=== PATIENT | male | born 1965 | race Caucasian/White ===

== ENCOUNTER 2021-04-13 22:51 | Emergency (ER) | payer BC, MEDICAID ==
[2021-04-13] MEDS ORDERED: fentaNYL 100 MCG/2 ML SDV IM ONE (23:57)
--- NOTE | 2021-04-13 23:59 | EDM.PDOC ---
ED HPI GENERAL MEDICAL PROBLEM - General Chief Complaint: Headache Stated Complaint: SEVERE HEAD PAIN Time Seen by Provider: 04/13/21 23:49 Source of Information: Reports: Patient, Family, RN Notes Reviewed History Limitations: Reports: No Limitations - History of Present Illness INITIAL COMMENTS - FREE TEXT/NARRATIVE: 55-year-old gentleman presents emergency department today with facial pain, he was recently in the clinic diagnosed with sinusitis started on prednisone and an antibiotic he states he has been using ibuprofen and Tylenol with any significant relief pain is predominantly on the left side it does wax and wane he has had something similar to this about 2 years ago when he had a bad sinus infection. Left Lower Headache Pain Score (Numeric/FACES): 10 - Related Data Allergies Allergy/AdvReac Type Severity Reaction Status Date / Time No Known Allergies Allergy Verified 04/13/21 23:41 Home Meds: Home Meds Tamsulosin [Flomax] 0.4 mg PO DAILY 04/13/21 [History] Past Medical History - Infectious Disease History Other Infectious Disease History: both covid vaccines recieved - Past Surgical History GI Surgical History: Reports: Appendectomy Social & Family History - Tobacco Use Tobacco Use Status *Q: Never Tobacco User - Caffeine Use Caffeine Use: Reports: Coffee - Alcohol Use Days Per Week of Alcohol Use: 7 Number of Drinks Per Day: 1 Total Drinks Per Week: 7 - Recreational Drug Use Recreational Drug Use: Yes Recreational Drug Type: Reports: Marijuana/Hashish Recreational Drug Use Frequency: Weekly ED ROS ENT - Review of Systems Review Of Systems: See Below Constitutional: Denies: Fever, Chills HEENT: Reports: Sinus Problem Respiratory: Reports: No Symptoms Cardiovascular: Reports: No Symptoms GI/Abdominal: Reports: No Symptoms ED EXAM, ENT - Physical Exam Exam: See Below Exam Limited By: No Limitations General Appearance: Alert, Mild Distress Eye Exam: Bilateral Eye: EOMI, Normal Fundi, Normal Inspection, PERRL Ears: Normal External Exam, Normal Canal, Hearing Grossly Normal, Normal TMs, Other (Tender over maxillary sinus on the left) Nose: Normal Inspection, Normal Mucousa, No Blood Mouth/Throat: Normal Inspection, Normal Gums, Normal Lips, Normal Oropharynx, Normal Teeth Respiratory/Chest: No Respiratory Distress, Lungs Clear, Normal Breath Sounds, No Accessory Muscle Use, Chest Non-Tender Cardiovascular: Regular Rate, Rhythm, No Murmur Course - Vital Signs Last Recorded V/S: Last Vital Signs Temp 97.0 F 04/13/21 23:43 Pulse 74 04/13/21 23:43 Resp 16 04/13/21 23:43 BP 141/86 H 04/13/21 23:43 Pulse Ox 97 04/13/21 23:43 - Orders/Labs/Meds Meds: Medications Discontinued Medications Generic Name Dose Route Start Last Admin Trade Name Zach PRN Reason Stop Dose Admin Fentanyl 50 mcg 04/13/21 23:57 04/14/21 00:06 Fentanyl 100 Mcg/2 Ml Sdv IM 04/13/21 23:58 50 mcg ONETIME ONE Administration Departure - Departure Time of Disposition: 00:31 Disposition: Home, Self-Care 01 Condition: Fair Clinical Impression: Sinus headache - Discharge Information Instructions: Sinus Headache Referrals: Elana Maldonado DO [Primary Care Provider] - Forms: ED Department Discharge Additional Instructions: Use ibuprofen for baseline pain control use hydrocodone for breakthrough pain, please followup with your primary care provider in 2-3 days if not better, please call return to the emergency department with worsening of symptoms. Sepsis Event Note (ED) - Evaluation Sepsis Screening Result: No Definite Risk - Focused Exam Vital Signs: Vital Signs Temp Pulse Resp BP Pulse Ox 04/13/21 23:43 97.0 F 74 16 141/86 H 97 - Assessment/Plan Plan: Assessment Acuity = acute Site and laterality = sinus headache Etiology = sinusitis Manifestations = none Location of injury = Home Lab values = none Plan Good improvement with fentanyl provided in emergency department, prescription w ritten for hydrocodone 5/325 1 tab p.o. 3 times daily as needed total #6 follow- up primary care in 2 to 3 days if not better This note was dictated using [employer] voice recognition software please call with any questions on syntax or grammar.
== END 2021-04-14 00:41 | disposition home or self-care (01) ==
LOC: JP.ED 22:51
DX: R51.9 Headache, unspecified (principal); J34.89 Other specified disorders of nose and nasal sinuses
CPT/HCPCS: 96372; 99282; 99283; J3010

== ENCOUNTER 2024-01-31 06:22 | Emergency (ER) | payer MEDICAID ==
[2024-01-31 07:38] LABS: APPEARANCE,URINE CLOUDY (CLEAR); BILIRUBIN,URINE NEGATIVE (NEGATIVE); COLOR,URINE YELLOW (YELLOW); GLUCOSE,URINE NEGATIVE (NEGATIVE); KETONES,URINE NEGATIVE (NEGATIVE); LEUKOCYTE ESTERASE,URINE NEGATIVE (NEGATIVE); NITRITE,URINE NEGATIVE (NEGATIVE); OCCULT BLOOD,URINE TRACE-INTACT (NEGATIVE); PH,URINE 7.5 (5.0-8.0); PROTEIN,URINE NEGATIVE (NEGATIVE); UROBILINOGEN,URINE 0.2 EU/dL (0.2-1.0)
[2024-01-31 07:43] LABS: EPITHELIAL CELLS,URINE NOT SEEN; RBC,URINE 0-5 (0-5); WBC,URINE 0-5 (0-5)
[2024-01-31 07:44] LABS: AMORPHOUS SEDIMENT,URINE MODERATE; BACTERIA,URINE FEW; MUCUS,URINE NOT SEEN
== END 2024-01-31 08:11 | disposition home or self-care (01) ==
LOC: JP.ED 06:22
DX: R33.9 Retention of urine, unspecified (principal)
CPT/HCPCS: 51702; 81001; 99284